=== PATIENT | male | born 1940 | race Caucasian/White ===

== ENCOUNTER 2019-06-10 00:23 | Day surgery (SDC) | payer MEDICARE, SELFPAY ==
[2019-05-27 10:17] VITALS: BMI 25.0
--- NOTE | 2019-06-09 23:03 | HP_ITS ---
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 The patient has been prepared for excision of these understanding there may be wedge excision of the lower lip that could result in some difficulty with speech or drinking. In addition, there will be a scar for each of these surgeries.. There may be a problem with numbness also. They would like to proceed. PAST MEDICAL HISTORY: The patient is 79. He is from [place], referred by his primary care physician with a biopsy from the arm. He presented with his daughter, who prefers to be the person of contact and has permission for that. ALLERGIES: INDICATES THAT HE HAS NO KNOWN ALLERGIES TO MEDICATION. MEDICATIONS: Currently he takes simvastatin 20 mg, aspirin 81 mg daily. Prior problem list from his primary care physician includes lumbar radicular syndrome, coronary artery disease, hyperlipidemia, Raynaud syndrome, prostate cancer screening, and actinic keratosis. SOCIAL HISTORY: He is a nonsmoker and never smoked. SURGICAL HISTORY: Includes a hernia repair. FAMILY HISTORY: Noncontributory. SOCIAL HISTORY: He lives in [place]. He is not employed. He does enjoy caffeine. PHYSICAL EXAMINATION: GENERAL: He is oriented, pleasant, participates in the conversation. He is in no distress. VITAL SIGNS: He is 5 feet 5 inches, weighs 152 pounds. HEENT: Unremarkable. CHEST: Clear to auscultation. HEART: Regular rate and rhythm by palpation. ABDOMEN: Soft, nontender. EXTREMITIES: Normal. SKIN EXAM: Reveals a small biopsy site on his left lower lip, roughly 0.5 cm in diameter, and a 4 x 4 cm red plaque on his right dorsal forearm, that resembles eczema. 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 PLAN: Excision of both with frozen section and possible full-thickness skin graft to the right arm from the right thigh to be under MAC anesthetic and remain on his aspirin. D I MT: Les RAHMAN
[2019-06-10 06:35] VITALS: BP 135/71; PULSE 82; RESP 18; TEMP 36.8; O2SAT 98
[2019-06-10] MEDS: LACTATED RINGERS 1,000 ML 30 ML IV CONT (06:35)
--- NOTE | 2019-06-10 07:09 | P.PNAN_ITS ---
Anes - Initial Pre Proc Eval Procedure: Operation Date: 06/10/19 07:30 Proposed Procedures p Excision Neoplasm Left Lower Lip with Frozen Section, - Emory Thayer MD s Excision Squamous Cell Carcinoma In Situ Right Arm with Frozen Section, Possible Full Thickness Skin Graft From Thigh - Emory Thayer MD Date/Time: 06/10/19 07:09 Surgeon: Emory Thayer MD Pre Op Diagnosis: susp CA of left lower lip, Sq cell CA Right Arm Patient Data Age: 79 Gender: M Height: 1.68 m Weight: 68.7 kg Last Vital Signs Temp 36.8 C 06/10/19 06:35 Pulse 82 06/10/19 06:35 Resp 18 06/10/19 06:35 BP 135/71 06/10/19 06:35 Pulse Ox 98 06/10/19 06:35 Allergies Allergy/AdvReac Type Severity Reaction Status Date / Time No Known Allergies Allergy Verified 06/10/19 06:54 Home Medications Medication Instructions Recorded Confirmed Type aspirin [Aspir-81] 81 mg PO DAILY 05/27/19 06/10/19 History simvastatin 20 mg PO DAILY 05/27/19 06/10/19 History Patient hx anesthesia problems: none Family hx anesthesia problems: none [facility] Past Medical History Medical History (Updated 06/10/19 @ 07:31 by Otilia Short CRNA) Chronic back pain Hyperlipidemia Osteoarthritis Skin cancer Surgical History Surgical History (Updated 06/10/19 @ 07:31 by Otilia Short CRNA) H/O inguinal hernia repair Anes - Eval Final PreProcedure Day of Procedure 06/10/19 07:09 Patient weight: normal Heart: regular rate and rhythm Lungs: clear to auscultation and normal air movement Airway: Mallampati scale class II Neurological: alert and oriented Last oral intake: >/= 8 hours ASA classification: II Emergent: no Anesthetic plan: proceed Anesthesia type and monitoring: general GIVS Informed Consent: The patient's anesthetic plan and its attendant risks and benefits were discussed with the patient/family/POA. Questions were solicited and answers provided to the satisfaction of the patient/family/POA.
--- NOTE | 2019-06-10 07:21 | WPDHPUPDATE1 ---
History and Physical Update Update Date/Time: 06/10/19 07:21 History and Physical has been reviewed, including an updated exam of the patient. There are NO changes in the patient's condition. Risks, benefits, and alternatives have been discussed and questions answered. Patient agrees to proceed with procedure.
--- NOTE | 2019-06-10 07:28 | WPDANESEPP ---
Anes - Eval Pre Procedure Procedure: Operation Date: 06/10/19 07:30 Proposed Procedures p Excision Neoplasm Left Lower Lip with Frozen Section, - Emory Thayer MD s Excision Squamous Cell Carcinoma In Situ Right Arm with Frozen Section, Possible Full Thickness Skin Graft From Thigh - Emory Thayre MD Date/Time: 06/10/19 07:28 Surgeon: Flaca Pre Op Diagnosis: susp CA of left lower lip, Sq cell CA Right Arm Patient Data Age: 79 Gender: M Height: 5 ft 6 in Weight: 68.7 kg Last Vital Signs Temp 98.2 F 06/10/19 06:35 Pulse 82 06/10/19 06:35 Resp 18 06/10/19 06:35 BP 135/71 06/10/19 06:35 Pulse Ox 98 06/10/19 06:35 Allergies Allergy/AdvReac Type Severity Reaction Status Date / Time No Known Allergies Allergy Verified 06/10/19 06:54 Home Medications Medication Instructions Recorded Confirmed Type aspirin [Aspir-81] 81 mg PO DAILY 05/27/19 06/10/19 History simvastatin 20 mg PO DAILY 05/27/19 06/10/19 History ECG: SR w/PVC Patient hx anesthesia problems: post op nausea/vomiting Family hx anesthesia problems: none PMFSH Past Medical History Medical History (Updated 06/10/19 @ 07:31 by Otilia Short CRNA) Chronic back pain Hyperlipidemia Osteoarthritis Skin cancer Surgical History Surgical History (Updated 06/10/19 @ 07:31 by Otilia Short CRNA) H/O inguinal hernia repair Exam Day of Procedure 06/10/19 07:28
--- NOTE | 2019-06-10 07:48 | PM.OP ---
Procedure Note - Brief Procedure Note - Brief Date of procedure: 06/10/19 Pre-op diagnosis: susp CA of left lower lip, Sq cell CA Right Arm Squamous cell carcinoma of left lower lip and SCIS of right arm. Post-op diagnosis: same Procedure performed: 1.0 cm excision of SCCA of left lower lip with FS and intermediate repair 2.5 cm. 6.0 cm excision of SCIS of right arm with FS and FTSG 30 sq cm. Anesthesia: MAC Surgeon: Emory Thayer MD Dispute Coordinator: Amelia FERNÁNDEZ Estimated blood loss (mL): 5 Drains: No Packing: No Pathology: yes Complications: No immediate complications Condition: stable Disposition: same day
[2019-06-10] MEDS: LIDO 1%/EPINEPHRINE 1:100,000 20 ML VIAL 24 ML INFILTRATE (08:36)
[2019-06-10] MEDS: BACITRACIN OINTMENT 15 GM TUBE 1 APPLIC TOPICAL (09:49)
--- NOTE | 2019-06-10 09:52 | SUR.OPER ---
EBL:[id number]
[2019-06-10 10:01] VITALS: BP 100/59; PULSE 75; RESP 14; TEMP 36.3; O2SAT 100
--- NOTE | 2019-06-10 10:17 | PM.PROC ---
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 Post-op diagnosis: same Procedure performed: 1 cm excision of squamous cell carcinoma of the left lower lip with frozen section and intermediate repair 2 cm. 6 cm excision of squamous cell carcinoma in situ of the right arm with frozen section and full-thickness skin graft 30 sq cm. Description of procedure: The sites of the lip and right arm were marked with the patient in the holding area. The arm lesion is actually on the dorsal forearm. Both have been biopsied prior to surgery. Patient was taken to the operating room and placed supine on the operating table. A time-out was held and confirmed. The 2 sites were marked for excision. Each was infiltrated with 1% lidocaine with epinephrine. The lesion from the right arm was excised through the full-thickness of skin and taken off in the subcutaneous layer, the most proximal aspect was marked with a suture for 12:00 o'clock. Bleeding points were electrocoagulated. The wound was covered and attention was turned to the left lower lip. At the lip a circular excision of skin only was taken and a suture marked the most anterior aspect. This tissue was sent to pathology for frozen section. The pathologist reports invasive squamous cell carcinoma with free margins. A donor site for skin graft was marked on his right thigh. This area was widely infiltrated with 1% lidocaine with epinephrine. A full-thickness oval graft was taken from the anterior right thigh, it was defatted and inset to the right arm with 5 0 nylon. Pie crusting stitches were placed as well. The donor site was undermined to both sides and closed with 2-0 Vicryl dermal stitches uniting the margins. The skin was closed at the surface with glue. The lip was closed with very little undermining, the orbicularis was preserved. The dog ears were taken out in the mucosa and on the cutaneous lip and the wound closed with interrupted 5 0 nylon and 500 Vicryl The patient was given 2 g of Ancef IV the. Is discharged home with instructions in wound care and follow-up. He will have a prescription for cephalexin for 5 days and some tramadol for pain. Surgeon: Emory Thayer MD
[2019-06-10 10:30] VITALS: BP 106/66; PULSE 60
[2019-06-10 10:45] VITALS: BP 112/53; PULSE 72
== END 2019-06-10 11:05 | disposition home or self-care (01) ==
PROVIDERS: PCP Family Medicine; Visit Provider Plastic Surgery
PROC: (CPT 11641; principal; 2019-06-10 07:30)
PROC: (CPT 11641; 2019-06-10 07:30)
DX: C44.02 Squamous cell carcinoma of skin of lip (principal); C44.622 Squamous cell carcinoma of skin of right upper limb, including shoulder; E78.5 Hyperlipidemia, unspecified; M19.90 Unspecified osteoarthritis, unspecified site; Z79.82 Long term (current) use of aspirin
CPT/HCPCS: 11641; 12051; 11606; 15220; 15221; 88305; 88331; 88332; A9270; J0690; J2704; J3010; J7120